=== PATIENT | female | born 1940 | race Caucasian/White ===

== ENCOUNTER 2017-01-13 17:28 | Inpatient (IN) | payer OTHER ==
[~2017-01-13] VITALS: Ht 167.6 cm; Wt 89.5 kg
--- NOTE | 2017-01-13 17:46 | NUR ---
BROUGHT IN BY [facility],STATED AROUND 1600 STARTED TO HAVE PALPITATION,FELT HER HEART BOUNDING, EKG SHOWD UNCONTROLLED AF WITH VENT, RESPONSE 142/MINUTE RESP. EASY BREATH SOUNDS CLEAR,
[2017-01-13 18:19] LABS: BASOPHIL % 0.5 % (0-2); PLATELET COUNT 197 x10^3mcL (130-400); RED CELL DISTRIBUTION WIDTH 13.4 % (11.5-14.5)
[2017-01-13 18:22] LABS: CALCIUM 9.7 mg/dL (8.5-10.1); CARBON DIOXIDE 24.6 mmol/L (21-32); CHLORIDE SERUM 109 mmol/L (98-107); CREATININE SERUM 1.1 mg/dL (0.6-1.0); GLUCOSE SERUM 118 mg/dL (74-106); POTASSIUM SERUM 3.6 mmol/L (3.5-5.1); SODIUM SERUM 145 mmol/L (136-145)
[2017-01-13 18:27] LABS: ALBUMIN 3.9 g/dL (3.4-5.0); ALKALINE PHOSPHATASE 66 U/L (46-116); ALT/SGPT 33 U/L (14-59); AST/SGOT 19 U/L (15-37); BILIRUBIN TOTAL 0.77 mg/dL (0.20-1.00)
[2017-01-13] MEDS ORDERED: SYNTHROID0.137 MG PO (18:41)
[2017-01-13] MEDS ORDERED: CYCLOBENZAPRINE10 MG PO (18:42)
[2017-01-13] MEDS ORDERED: GOOD SENSE OMEP20 MG PO (18:43)
[2017-01-13] MEDS ORDERED: NAPROSYN500 MG PO (18:44)
[2017-01-13] MEDS ORDERED: GABAPENTIN100 M2 PO (18:45)
[2017-01-13] MEDS ORDERED: TOPAMAX25 MG PO ×2 (18:46→18:47)
[2017-01-13] MEDS ORDERED: ASPIR 8181 MG PO (18:49)
[2017-01-13] MEDS ORDERED: NATURAL IRON65 MG PO (18:50)
[2017-01-13] MEDS ORDERED: NATURAL ZINC50 MG PO (18:51)
[2017-01-13] MEDS ORDERED: LEADER MAGNESIU1 TAB PO (18:51)
[2017-01-13] MEDS ORDERED: CLARITIN10 MG PO (18:52)
[2017-01-13] MEDS ORDERED: CALCIUM + D3 E1 EACH PO (18:52)
[2017-01-13] MEDS ORDERED: ESTROVEN MAXIMU PO (18:54)
[2017-01-13] MEDS ORDERED: ZOLMITRIPTAN PO (18:57)
--- NOTE | 2017-01-13 19:02 | NUR ---
DR MENDEZ TALKED TO PT ABOUT PLAN TO ADMIT, PT VERBALIZED PLAN OF CARE
--- NOTE | 2017-01-13 19:07 | NUR ---
REPORT TO [facility]
--- NOTE | 2017-01-13 19:10 | NUR ---
CHANGE OF SHIFT REPORT GIVEN BY ED AGENCY 01, RN TO CONTINUE CARE.
--- NOTE | 2017-01-13 19:36 | NUR ---
PT MEDICATED PER DR MENDEZ ORDERS. PT EDUCATED ON MED AND DENIES ALLERGIES. PT IV SITE PATENT WITH NO SX OF INFILTRATION NOTED. PT AAOX4, TALKING TO RESIDENT AT BEDSIDE. NO SX OF DISTRESS NOTED.
--- NOTE | 2017-01-13 19:57 | NUR ---
ADMISSION REPORT GIVEN TO SHARRI CÁRDENAS TO CONTINUE CARE.
[2017-01-13 21:00] VITALS: BP 162/65
--- NOTE | 2017-01-13 21:04 | NUR ---
RECEIVED PT FROM ED VIA MINDY. ORIENTED PT TO ROOM AND SURROUNDINGS. IV NOTED TO LAC PATENT AND INTACT. TELE 32 PLACED ON PT READING AFIB. INSTRUCTED PT ON THE USE OF CALL LIGHT FOR ASSISTANCE. ENDORSED PT TO PRIMARY NURSE AVI
[2017-01-13 21:13] VITALS: BP 162/65
[2017-01-13 21:19] LABS: MAGNESIUM 2.2 mg/dL (1.8-2.4); PHOSPHOROUS 2.3 mg/dL (2.5-4.9)
[2017-01-13 21:30] LABS: T3 TOTAL 0.86 ng/mL
[2017-01-13 21:42] LABS: FREE T4 1.32 ng/dL (0.76-1.46); FREE THYROXINE INDEX 3.7 ug/dL (1.4-4.5); T4(THYROXINE) 10.1 ug/dL (4.7-13.3)
--- NOTE | 2017-01-13 22:24 | NUR ---
STARTED PT ON HEPARIN DRIP AT 1100 ML/HR. BOLUS PT WITH 5400 OF HEPARIN IVP. WITNESS BY RN DIONI. WILL ORDER PTT.
[2017-01-14] VITALS (7 sets, daily range): BP systolic 111–159; BP diastolic 60–94
--- NOTE | 2017-01-14 | NUR ---
PT CONVERTED BACK TO SINUS RHYTHM. PAGED DR ARRINGTON. WAITING FOR A CALL BACK.
--- NOTE | 2017-01-14 00:10 | NUR ---
DR ARRINGTON MADE AWARE OF PT'S CONVERSION OF SINUS RHYTHM.
--- NOTE | 2017-01-14 01:30 | NUR ---
ROUNDS MADE, PT IS SLEEPING WITH EYES CLOSED. NO DISTRESS NOTED. WILL CONT TO MONITOR.
--- NOTE | 2017-01-14 04:08 | NUR ---
PTT 123.3. HELD HEPARIN INFUSION AND WILL ORDER ANOTHER PTT WITHIN 2 HOURS.
--- NOTE | 2017-01-14 04:18 | NUR ---
ROUNDS MADE, PT IS SLEEPING. NO DISTRESS NOTED. WILL CONT TO MONITOR.
--- NOTE | 2017-01-14 06:28 | NUR ---
PT SLEPT THROUGHOUT THE SHIFT. NO DISTRESS OR SIGNIFICANT CHANGES NOTED. ALL NEEDS MET AND ATTENDED TO. BREATHING EVEN AND UNLABORED. IV ACCESS PATENT AND INTACT. WILL ENDORSE ALL CARE TO ONCOMING NURSE.
[2017-01-14 06:51] LABS: microscopic required? NO
[2017-01-14 07:04] LABS: BASOPHIL % 0.7 % (0-2); PLATELET COUNT 156 x10^3mcL (130-400); RED CELL DISTRIBUTION WIDTH 13.4 % (11.5-14.5)
[2017-01-14 07:05] LABS: CALCIUM 8.6 mg/dL (8.5-10.1); CARBON DIOXIDE 29.5 mmol/L (21-32); CHLORIDE SERUM 109 mmol/L (98-107); CHOLESTEROL 153 mg/dL (<200); CHOLESTEROL/HDL RATIO 3.2; CREATININE SERUM 0.8 mg/dL (0.6-1.0); GLUCOSE SERUM 91 mg/dL (74-106); HDL CHOLESTEROL 48 mg/dL (40-60); PHOSPHOROUS 2.8 mg/dL (2.5-4.9); POTASSIUM SERUM 3.5 mmol/L (3.5-5.1); SODIUM SERUM 145 mmol/L (136-145); TRIGLYCERIDES 114 mg/dL (<150)
--- NOTE | 2017-01-14 07:15 | NUR ---
PT WAS ENDORSE TO ME THIS MORNING. AA/OX4, TELE 32, HR 64. HEPARIN DRIP ON HOLD PENDING PTT RESULTS. LUNGS CLEAR ON 2L NC. NO RESP DISTRESS OR SOB NOTED. PT DENIES ANY CHEST PAIN OR PRESSURE. IV TO THE LAC PATENT AND INFUSING AT 120ML/HR. CALL LIGHT IN REACH. BED IN LOW POSITION. WILL CONTINE PLAN OF CARE.
[2017-01-14 08:06] LABS: urine erythrocyte NEGATIVE (NEGATIVE)
[2017-01-14 08:18] LABS: AMPHETAMINE QUAL UR NONE DETECTED (NEG <=1000)
--- NOTE | 2017-01-14 09:20 | NUR ---
CURRENT PTT 38.2 , HEPARIN BOLUS 3600 UNITS GIVEN PER PROTOCAL AND INCREASE HEPARIN DRIP FROM 1100 UNITS/HR TO 1300 UNITS/HR. WILL ORDER PTT 1330.
--- NOTE | 2017-01-14 09:45 | NUR ---
PT C/O MIGRAINE JONES, PHARMACY VERIFIED HOME MED (ZOLMITRIPTAIN), MED WAS GIVEN.
--- NOTE | 2017-01-14 09:54 | NUR ---
PT C/O BACK PAIN 11/19. MEDICATED PER EMAR.
--- NOTE | 2017-01-14 12:22 | NUR ---
VS: 155/76 MAP 102. HR 83. RESP 17. O2 [id number]. DR. HULL MADE AWARE.
--- NOTE | 2017-01-14 13:36 | NUR ---
GAVE PT BP MED PER EMAR. TOLERATED WELL. DENIES ANY CHEST PAIN OR PRESSURE. WILL CONTINUE TO MONITOR.
--- NOTE | 2017-01-14 14:36 | NUR ---
CURRENT PTT 110.2 HEPARIN DRIP ON HOLD PER HEPARIN PROTOCAL. WILL RESUME HEPARIN DRIP AT 1530PM AND DECREASE BY 300 UNITS/HR. PTT ORDERD FOR 183.
--- NOTE | 2017-01-14 15:38 | NUR ---
PER HEPARIN PROTOCAL, RESTARTED HEPARIN DRIP AT 1000 UNITS/HR. VERIFIED HEPARIN DRIP.
--- NOTE | 2017-01-14 19:02 | NUR ---
PT IS LAYING IN BED AA/O X4. BREATHING EVEN AND UNLABORED, NO RESP DISTRESS OR SOB NOTED. IV HEPARIN DRIP INFUSING AT 1000UNITS/HR, PENDING PTT RESULT.IV TO LAC INTACT AND PATNET. PT DENIES ANY CHEST PAIN OR PRESSURE AT THIS TIME. WILL ENDORSE PT TO INCOMING RN.
--- NOTE | 2017-01-14 19:54 | NUR ---
PTT LEVEL READING SHOWS 65.0, NO ADJUSTMENT REQUIRED AT THIS TIME PER PROTOCOL.HEPARIN DRIP REMAINS AT 1000UNITS/HR. ALERT AND ORIENTED. DENIES HEADACHE/DIZZINESS. RESP. EVEN AND UNLABORED. NO DISTRESS NOTED. SR ON THE MONITOR, DENIES CHEST PAIN OR ANY DISCOMFORT AT THIS TIME. AFEBRILE AND VITAL SIGNS STABLE. IVF, NS AT 20ML/HR, INFUSING VIA LAC, SITE CLEAR. ABLE TO TURN AND REPOSITION SELF IN BED. NO COMPLAINTS NOTED AT THIS TIME. ASSISTED WITH HS CARE. CALL LIGHT WITHIN REACH. WILL CONTINUE TO MONITOR.
--- NOTE | 2017-01-15 01:43 | NUR ---
PTT LEVEL READING SHOWS 77.8, HEPARIN DRIP RATE REDUCED TO 800UNITS/HR PER PROTOCOL. NEXT PTT LEVEL DUE AT 0545. WILL CONTINUE TO MONITOR.
--- NOTE | 2017-01-15 01:45 | NUR ---
SLEEPING AT THIS TIME.EASILY AROUSABLE. NO DISTRESS NOTED. WILL CONTINUE TO MONITOR.
[2017-01-15 05:43] VITALS: BP 145/78
--- NOTE | 2017-01-15 06:18 | NUR ---
SLEPT MOST OF THE NIGHT. RESP. EVEN AND UNLABORED. NO DISTRESS NOTED. AFEBRILE AND VITAL SIGNS STABLE.SR ON THE MONITOR, DENIES CHEST PAIN OR ANY DISCOMFORT. IVF, NS AT 20ML/HR, INTACT AND INFUSING WELL, SITE CLEAR. HEPARIN DRIP AT 800UNITS/HR, PENDING NEXT PTT LEVEL. NO COMPLAINTS NOTED. DUE MEDS GIVEN ORDERED, DERRICK. WELL. WILL ENDORSE TO INCOMING NURSE.
[2017-01-15 07:01] LABS: CALCIUM 9.1 mg/dL (8.5-10.1); CARBON DIOXIDE 30.9 mmol/L (21-32); CHLORIDE SERUM 110 mmol/L (98-107); CREATININE SERUM 0.9 mg/dL (0.6-1.0); GLUCOSE SERUM 94 mg/dL (74-106); POTASSIUM SERUM 4.1 mmol/L (3.5-5.1); SODIUM SERUM 146 mmol/L (136-145)
--- NOTE | 2017-01-15 07:30 | NUR ---
AAO TIMES 4. TELE # 32 SR. VS'S STABLE. NO SOB. LUNGS CTA. O2 SAT ON RA 98%. BS'S ACTIVE TIMES 4. TANNER STRONG, BRP SELF. NO C/O DIZZINESS OR PAIN. PERIPHERAL PULSES PALPABLE. NO EDEMA. HEPARIN 800 UNITS PER HOUR. PTT CALLED TO ME BY LAB AT 0741, PTT IS 66.5. ACCORDING TO HEPARIN PROTOCOL, I REDUCED HEPARIN FROM 800 UNITS PER HOUR TO 600 UNITS PER HOUR AT 0800. NEXT PTT IS ORDERED FOR 1200.
--- NOTE | 2017-01-15 08:30 | NUR ---
MEDICAL ROUNDS OCCURED WITH DR PERALTA AND THE MEDICINE TEAM AT 0830. THE PLAN TODAY IS TO TALK TO CARDIOLOGY AND CHECK HER ECHO TO MAKE SURE ITS OK. IF THE ECHO IS OK SHE WILL BE DC'D HOME TODAY ON COUMADIN. SHE IS CURRENTLY ON HEPARIN IV PROTOCOL.
[2017-01-15 09:02] VITALS: BP 138/68
[2017-01-15 13:05] VITALS: BP 140/62
--- NOTE | 2017-01-15 13:23 | NUR ---
PTT FROM 1200 DRAW FOR HEPARIN PROTOCOL 47.2, NO CHANGE IN RATE. NEXT PTT ORDERED FOR 1600. HEPARIN REMAINS AT 600 UNITS PER HOUR.
[2017-01-15] MEDS ORDERED: COUMADIN4 MG PO (15:21)
--- NOTE | 2017-01-15 15:36 | NUR ---
PT GOING HOME. DC'D SL ANGIO INTACT. STOPPED HEPARIN INFUSION PER DR FLEMING ORDER.
[2017-01-15 15:37] VITALS: BP 140/62
[2017-01-15] MEDS ORDERED: SOTALOL HCL80 MG PO (15:44)
--- NOTE | 2017-01-15 16:07 | NUR ---
GAVE DISCHARGE INSTRUCTIONS. PT VERALIZED "I UNDERSTAND" TO ALL INSTRUCTIONS.
== END 2017-01-15 16:20 | disposition home or self-care (01) | DRG 309 ==
LOC: ED 17:28 → DU 19:03
PROVIDERS: Emergency Medicine; ADMIT Student in an Organized Health Care Education/Training Program
DX: I48.91 Unspecified atrial fibrillation (principal); E87.0 Hyperosmolality and hypernatremia; K21.9 Gastro-esophageal reflux disease without esophagitis; E03.9 Hypothyroidism, unspecified; I10 Essential (primary) hypertension; G43.909 Migraine, unspecified, not intractable, without status migrainosus; E83.39 Other disorders of phosphorus metabolism; E87.8 Other disorders of electrolyte and fluid balance, not elsewhere classified; Z68.31 Body mass index [BMI] 31.0-31.9, adult; M54.30 Sciatica, unspecified side; Z79.899 Other long term (current) drug therapy; G89.29 Other chronic pain; M54.9 Dorsalgia, unspecified; Z90.710 Acquired absence of both cervix and uterus; Z80.3 Family history of malignant neoplasm of breast; Z81.8 Family history of other mental and behavioral disorders
CPT/HCPCS: 83880; 84439; J0153; J1644; J3490; J7030; J7050; Q0092